=== PATIENT | female | born 1955 | race African-American/Black ===

== ENCOUNTER 2019-03-22 05:32 | Observation (INO) | payer OTHER ==
[~2019-03-22] VITALS: Ht 162.6 cm; Wt 111.2 kg
--- OUTSIDE RECORDS SUMMARY | 2019-03-22 05:34 | XMS REPORT | Summary of Care ---
Author Author Alize Montgomery M.A. Organization Unknown Address [facility] Phone Unavailable Care Team Providers Care Deli Cutter Slicer Name Role Phone LEXA Holland, RADHA Unavailable Unavailable Alize Montgomery M.A. Unavailable Unavailable MARY RYAN PA, CYNTHIA HUDSON Unavailable Unavailable Yony RYAN, Sara Unavailable Unavailable Linda RYAN, Micky Unavailable Unavailable MO RYAN, MAHNAZ Unavailable Unavailable Scarlett RYAN, Ph.D. Unavailable Unavailable MARY Holland, CYNTHIA Unavailable Unavailable LEXA RYAN, RADHA Queen Unavailable Unavailable Karolina RYAN, Ha Unavailable Unavailable Unavailable Unavailable Functional Status Name Dates Details Functional status health issues are not documented Status: Name Dates Details Cognitive status health issues are not documented Status: Problems Name Dates Details Myalgia and myositis (729.1) Status: Active Paresthesia (782.0, R20.2) Status: Active Screening for hypothyroidism (V77.0, Z13.29) Status: Active Screening for hyperlipidemia (V77.91, Z13.220) Status: Active Proteinuria (791.0, R80.9) Status: Active Screening for vaginal cancer (V76.47, Z12.72) Status: Active Hypothyroidism (244.9, E03.9) Status: Active Middle ear effusion, bilateral (381.4, H65.93) Status: Active Depression (311, F32.9) Status: Active Anxiety (300.00, F41.9) Status: Active Hyperglycemia (790.29, R73.9) Status: Active Bronchospasm (519.11, J98.01) Status: Active Allergic rhinitis due to pollen (477.0, J30.1) Status: Active Lung nodule (793.11, R91.1) Status: Active Excessive gas (787.3, R14.3) Status: Active Elevated sedimentation rate (790.1, R70.0) Status: Active Abdominal pain (789.00, R10.9) Status: Active IBS (irritable bowel syndrome) (564.1, K58.9) Status: Active Screening for diabetes mellitus (V77.1, Z13.1) Status: Active Arthralgia (719.40, M25.50) Status: Active Diverticulosis of colon (562.10, K57.30) Status: Active GERD without esophagitis (530.81, K21.9) Status: Active Achilles tendinitis of right lower extremity (726.71, M76.61) Status: Active Vaginal odor (625.8, N89.8) Status: Active Postmenopausal state (V49.81, Z78.0) Status: Active Left shoulder pain, unspecified chronicity (719.41, M25.512) Status: Active Anemia (285.9, D64.9) Status: Active History of colon polyps (V12.72, Z86.010) Status: Active Colon cancer screening (V76.51, Z12.11) Status: Active Sinus pressure (478.19, J34.89) Status: Active Viral pharyngitis (462, J02.9) Status: Active Aortic valve regurgitation, nonrheumatic (424.1, I35.1) Status: Active Palpitations (785.1, R00.2) Status: Active Lower back pain (724.2, M54.5) Status: Active Skin lesion (709.9, L98.9) Status: Active Obesity, morbid, BMI 40.0-49.9 (278.01, E66.01) Status: Active Encounter for routine gynecological examination with Papanicolaou smear of cervix (V72.31, Z01.419) Status: Active Breast cancer screening (V76.10, Z12.39) Status: Active Need for hepatitis C screening test (V73.89, Z11.59) Status: Active Lesion of nostril (478.19, J34.89) Status: Active Medications Name Dates Details Multivitamins TABS TAKE 1 TABLET DAILY. Active Fish Oil 1000 MG Oral Capsule TAKE 1 CAPSULE DAILY * Refills: 0 Active ProAir HFA 108 (90 Base) MCG/ACT Inhalation Aerosol Solution INHALE 1 TO 2 PUFFS EVERY 4 TO 6 HOURS NEEDED. * Quantity: 1 Refills: 2 RADHA LINDQUIST M.D. * Start : 10-Apr-2016 Active 8.5 GM Inhaler Papaya Oral Tablet Chewable TAKE DIRECTED. * Refills: 0 Active Allergies and Adverse Reactions Name Dates Details 12 Hour Decongestant TB12 (Allergy) Status: Active Aspirin TABS (Allergy) Status: Active Penicillins (Allergy) Status: Active Past Medical History Name Dates Details History of Achilles tendinitis of right lower extremity (726.71, M76.61) Status: Resolved History of chest pain (V13.89, Z87.898) Status: Resolved History of Diverticulosis (562.10, K57.90) Status: Resolved History of essential hypertension (V12.59, Z86.79) Status: Resolved History of Heart palpitations (785.1, R00.2) Status: Resolved History of hypothyroidism (V12.29, Z86.39) Status: Resolved Procedures Procedure Dates Details History of Tonsillectomy Completed History of Hysterectomy Completed History of Biopsy Breast Open Completed Immunization Name Dates Details Immunizations not documented Family History Name Dates Details Family history of Hypertension (V17.49) Status: Active Name Dates Details Family history of Cancer Status: Active Family history of Heart Disease (V17.49) Status: Active Name Dates Details Family history of Diabetes Mellitus (V18.0) Status: Active Social History Name Dates Details - Status: Name Dates Details Never smoker Vital Signs Date Test Result Details [id number] BP Systolic 138 mm[Hg] Status: Comments: Location: LUE; Position: Sitting BP Diastolic 81 mm[Hg] Status: Comments: Location: LUE; Position: Sitting Physical Findings 2 Status: Comments: PHQ-9 Adult Depression Screening Height 65 in Status: Weight 245.5 lb Status: Body Mass Index Calculated 40.85 kg/m2 Status: Body Surface Area Calculated 2.16 m2 Status: Temperature 97.7 f Status: Comments: Method: Temporal Heart Rate 68 /min Status: Respiration Rate 16 /min Status: Physical Findings 0 Status: Comments: Pain Scale Physical Findings 0 Status: Comments: Alcohol Screen - How many times in the past yr have you had 5 (for M) or 4 (for F) or 4 (for all > 65yrs) or more drinks in a day? Results Date Description Value Details [id number] [QH] LIPID PANEL WITH REFLEX TO DIRECT LDL CHOLESTEROL, TOTAL 172 mg/dl (Normal) Range: <200 HDL CHOLESTEROL 56 mg/dl (Normal) Range: >50 TRIGLYCERIDES 103 mg/dl (Normal) Range: <150 LDL-CHOLESTEROL 96 {MG/DL__CAL} (Normal) Comments: Reference range: <100 Desirable range <100 mg/dL for primary prevention; <70 mg/dL for patients with CHD or diabetic patients with > or=2 CHD risk factors. LDL-C is now calculated using paz Ulloa calculation, which is a validated novel method providing better accuracy than the Friedewald equation in the estimation of LDL-C. Kameron ORTIZ et al. CHETAN. 2013;310(19): 9139-5769 (http:/ /[employer]/faq/DSH314) CHOL/HDLC RATIO 3.1 {CALC} (Normal) Range: <5.0 NON HDL CHOLESTEROL 116 {MG/DL__CAL} (Normal) Range: <130 Comments: For patients with diabetes plus 1 major ASCVD risk factor, treating to a non-HDL-C goal of <100 mg/dL (LDL-C of <70 mg/dL) is considered a therapeutic option. [id number] [[facility]] CMP W/EGFR GLUCOSE 97 mg/dl (Normal) Range: 65-99 Comments: Fasting reference interval UREA NITROGEN (BUN) 13 mg/dl (Normal) Range: 7-25 CREATININE 1.03 mg/dl (Above high threshold) Range: 0.50-0.99 Comments: For patients >49 years of age, the reference limitfor Creatinine is approximately 13% higher for peopleidentified as -Citizen Of [place]. eGFR NON- 57 {ML/MIN/1.7} (Below low threshold) Range: > OR=60 eGFR 67 {ML/MIN/1.7} (Normal) Range: > OR=60 BUN/CREATININE RATIO 13 {CALC} (Normal) Range: 6-22 SODIUM 142 mmol/L (Normal) Range: 135-146 POTASSIUM 3.7 mmol/L (Normal) Range: 3.5-5.3 CHLORIDE 104 mmol/L (Normal) Range: 98-110 CARBON DIOXIDE 29 mmol/L (Normal) Range: 20-32 CALCIUM 9.4 mg/dl (Normal) Range: 8.6-10.4 PROTEIN, TOTAL 7.0 g/dl (Normal) Range: 6.1-8.1 ALBUMIN 4.1 g/dl (Normal) Range: 3.6-5.1 GLOBULIN 2.9 {G/DL__CALC} (Normal) Range: 1.9-3.7 ALBUMIN/GLOBULIN RATIO 1.4 {CALC} (Normal) Range: 1.0-2.5 BILIRUBIN, TOTAL 0.4 mg/dl (Normal) Range: 0.2-1.2 ALKALINE PHSPHATASE 60 u/l (Normal) Range: 33-130 AST 14 u/l (Normal) Range: 10-35 ALT 9 u/l (Normal) Range: 6-29 [id number] [QL] CBC (INCLUDES DIFF/PLT) WHITE BLOOD CELL COUNT 5.8 {Thousand/u} (Normal) Range: 3.8-10.8 RED BLOOD CELL COUNT 4.40 {Million/uL} (Normal) Range: 3.80-5.10 HEMAGLOBIN 11.8 g/dl (Normal) Range: 11.7-15.5 HEMATOCRIT 36.8 % (Normal) Range: 35.0-45.0 MCV 83.6 fL (Normal) Range: 80.0-100.0 MCH 26.8 pg (Below low threshold) Range: 27.0-33.0 MCHC 32.1 g/dl (Normal) Range: 32.0-36.0 RDW 13.1 % (Normal) Range: 11.0-15.0 PLATELET COUNT 236 {Thousand/u} (Normal) Range: 140-400 MPV 12.1 fL (Normal) Range: 7.5-12.5 ABSOLUTE NEUTROPHILS 3648 {cells/uL} (Normal) Range: 9462-2498 ABSOLUTE LYMPHOCYTES 1676 {cells/uL} (Normal) Range: 850-3900 ABSOLUTE MONOCYTES 412 {cells/uL} (Normal) Range: 200-950 ABSOLUTE EOSINOPHILS 52 {cells/uL} (Normal) Range: 15-500 ABSOLUTE BASOPHILS 12 {cells/uL} (Normal) Range: 0-200 NEUTROPHILS 62.9 % (Normal) LYMPHOCYTES 28.9 % (Normal) MONOCYTES 7.1 % (Normal) EOSINOPHILS 0.9 % (Normal) BASOPHILS 0.2 % (Normal) 76-[id number]:[id number] [QL] HEPATITIS C ANTIBODY HEPATITIS C ANTIBODY NON-REACTIVE (Normal) Range: NON-REACTIVE SIGNAL TO CUT-OFF 0.05 (Normal) Range: <1.00 Comments: HCV antibody was non-reactive. There is no laboratory evidence of HCV infection. In most cases, no further action is required. However,if recent HCV exposure is suspected, a test for HCV RNA(test code 77899) is suggested. For additional information please refer tohttp://education.[employer]/faq/SKN96y5(This link is being provided for informational/educational purposes only.) [id number] [QLH] TSH, 3RD GENERATION Comments: REPORT COMMENT:FASTING:YES TSH 2.52 {MIU/L} (Normal) Range: 0.40-4.50 [id number]:00 [Q] SUREPATH PAP RFX HR HPV Comments: CMP, CT(ASCP)CT screening location: [address], [place] [address] CLINICAL INFORMATION: (Normal) Comments: None given LMP: (Normal) Comments: NONE GIVEN PREV. PAP: (Normal) Comments: NONE GIVEN PREV. BX: (Normal) Comments: NONE GIVEN SOURCE: (Normal) Comments: None given STATEMENT OF ADEQUACY: (Normal) Comments: Satisfactory for evaluation.Endocervical/transformation zone component absent. INTERPRETATION/RESULT: (Normal) Comments: Negative for intraepithelial lesion or malignancy. LINUX DEVOPS ENGINEER: (Normal) Comments: CMP, CT(ASCP)CT screening location: [address], [place] [address] . Comments: EXPLANATORY NOTE: The Pap is a screening test for cervical cancer. It is not a diagnostic test and is subject to false negative and false positive results. It is most reliable when a satisfactory sample, regularly obtained, is submitted with relevant clinical findings and history, and when the Pap result is evaluated along with historic and current clinical information. NO COLLECTION DATE RECEIVED. WE HAVE USEDTHE DATE THE SPECIMEN WAS RECE[facility]ED [facility] THE COLLECTION DATE. IF THISIS INCORRECT, PLEASE CONTACT CLIENT SERVICES.PHONE NUMBER: [phone] [id number]:13 [place] Digital Mammo Screening Anjel [id number] Digital Mammo Screening Anjel [place] SEE NOTES Comments: BILATERAL DIGITAL SCREENING MAMMOGRAM WITH CAD: 03/04/2019CLINICAL: Encounter For Other Screening For Malignant Neoplasm OfBreast/Z12.39. Current study was evaluated with a Computer Aided Detection (CAD) system. COMPARISON:Comparison is made to exams dated: 02/17/2018 mammogram, 01/31/2017mammogram - [facility], 11/18/2015 mammogram, and 11/11/2014mammogram - [facility]. TECHNIQUE: Mammographic views were obtained using digital acquisition. Currentstudy was also evaluated with a Computer Aided Detection (CAD) system.FINDINGS:The tissue of both breasts is almost entirely fat. No significant masses, calcifications, or other findings are seen in eitherbreast. There has been no significant interval change.IMPRESSION: NEGATIVERECOMMENDATION:There is no mammographic evidence of malignancy. A 1 yearscreening mammogram is recommended.(03/04/2020) This exam was interpreted [id number] for Lilliana, SL 15. Professional services [facility] provided by the [facility] MontebelloDivision of Diagnostic Imaging.Ahsan Barnett M.D. cm/penrad:03/04/2019 09:19:34 K 9 Police Officer(s): RT Ba(R)(M), [facility] sent: BI-RADS 1/2 Mammogram BI-RADS: 1 Negative--Read by: Rodrigue Torres MDDictated Date/time: 03/04/19 09:19Electronically Signed by: Rodrigue Torres MD 03/04/1909:19FINAL REPORT Plan of Care Name Dates Details Planned Observations Planned Goals not documented Instructions Name Dates Details Instructions not documented Encounters Appointment; RADHA LINDQUIST M.D. Encounter Diagnosis: Problem not documented On: 25-Jun-2017 11:15 Appointment; GENEVIEVE LOUIE M.D. Encounter Diagnosis: Problem not documented On: 21-Jul-2017 10:15 Appointment; RADHA LINDQUIST M.D. Encounter Diagnosis: Problem not documented On: 26-Jan-2018 9:30 Appointment; MASSIMO CRAWFORD M.D. Encounter Diagnosis: Problem not documented On: 30-Mar-2018 13:30 Appointment; HA BLOUNT M.D. Encounter Diagnosis: Problem not documented On: 30-Mar-2018 14:45 Appointment; SARA RUSSELL M.D. Encounter Diagnosis: Problem not documented On: 13-Jul-2018 11:30 Appointment; MICKY ADAMS M.D. Encounter Diagnosis: Problem not documented On: 13-Jul-2018 12:40 Appointment; [facility], ECHO Encounter Diagnosis: Problem not documented On: 03-Aug-2018 13:00 Appointment; [facility], HOLTER Encounter Diagnosis: Problem not documented On: 03-Aug-2018 14:00 Appointment; MICKY ADAMS M.D. Encounter Diagnosis: Problem not documented On: 24-Aug-2018 10:40 Appointment; MAHNAZ HASSAN M.D. Encounter Diagnosis: Problem not documented On: 17-Sep-2018 9:30 Appointment; ARLENE MARSH M.D. Encounter Diagnosis: Problem not documented On: 18-Dec-2018 11:15 Appointment; RADHA LINDQUIST M.D. Encounter Diagnosis: Problem not documented On: 08-Feb-2019 11:00
[2019-03-22] MEDS ORDERED: SODIUM CHLORIDE 0.9% 500ML 500 ML IV STA (06:03)
[2019-03-22] MEDS ORDERED: ASPIRIN 81 MG CHEW TAB PO ONE (06:15)
--- NOTE | 2019-03-22 06:36 | Diagnostic Imaging Report ---
EXAMINATION: Head CT without contrast. HISTORY:Left facial and upper extremity tingling sensation. Next COMPARISON:None. TECHNIQUE: Multidetector axial images were obtained from the foramen magnum to the vertex without contrast. The images were reconstructed using brain and bone algorithms. Thin section brain images were reformatted into coronal and sagittal planes. Dose modulation, iterative reconstruction, and/or weight based adjustment of the mA/kV was utilized to reduce the radiation dose to as low as reasonably achievable. Intravenous contrast: None IMAGE QUALITY: Acceptable. FINDINGS: Skull/scalp: No lytic or blastic. lesions. No surgical changes. Parenchyma: Nonspecific few, scattered supratentorial white matter hypodensity are likely related to small vessel ischemic changes. Focal hypodensity in anterior limb of right internal capsule represents age indeterminate lacunar infarct. No acute hemorrhage, mass or acute major vascular territorial infarct. Arteries: No density suggestive of thrombosis. Dural sinuses: No abnormal density suggestive of thrombosis. Ventricles: No hydrocephalus or displacement. Extra-axial spaces: No abnormal density. Brain volume: Normal for age. Craniocervical junction: No mass, Chiari malformation, or basilar invagination. Sella: No mass. Paranasal/mastoid sinuses: Imaged portions unremarkable. IMPRESSION: 1. No acute intracranial abnormality, particularly no acute hemorrhage, mass or acute major vascular territorial infarct. 2. Mild supratentorial white matter microvascular ischemic changes and age indeterminate lacunar infarct in anterior limb of right internal capsule. Signed by: Dr. Franny Casas M.D. on 03/22/2019 6:33 AM
[2019-03-22 07:00] LABS: BASOPHILS % 0.3 % (0.0-1.0); EOSINOPHILS % 0.5 % (0.0-6.0); HEMATOCRIT 36.2 % (34.2-44.1); HEMOGLOBIN 11.4 g/dL (12.0-16.0); LYMPHOCYTES # (AUTO) 2.1 (1.0-3.2); LYMPHOCYTES % 27.6 % (18.0-39.1); MEAN CORPUSCULAR HEMOGLOBIN 26.9 pg (28-32); MEAN CORPUSCULAR HGB CONC 31.5 g/dL (31-35); MEAN CORPUSCULAR VOLUME 85.4 fL (81-99); MONOCYTES # (AUTO) 0.6 (0.2-0.8); MONOCYTES % 7.7 % (4.4-11.3); NEUTROPHILS # (AUTO) 4.9 (2.1-6.9); NEUTROPHILS % 63.6 % (38.7-80.0); PLATELET COUNT 210 x10e3/uL (140-360); RED BLOOD COUNT 4.24 x10e6/uL (3.6-5.1); RED CELL DISTRIBUTION WIDTH 14.2 % (11.7-14.4)
[2019-03-22 07:12] LABS: ALANINE AMINOTRANSFERASE 13 IU/L (0-55); ALBUMIN 3.6 g/dL (3.5-5.0); ALKALINE PHOSPHATASE 59 IU/L (40-150); ANION GAP 12.3 mmol/L (8-16); BLOOD UREA NITROGEN 14 mg/dL (7-26); BUN/CREATININE RATIO 14 (6-25); CALCIUM 9.6 mg/dL (8.4-10.2); CARBON DIOXIDE 29 mmol/L (22-29); CHLORIDE 104 mmol/L (98-107); CREATINE KINASE 130 IU/L (29-168); CREATININE, SERUM 0.99 mg/dL (0.57-1.11); EST GLOMERULAR FILTRATION RATE > 60 ML/MIN (60-); GLUCOSE 111 mg/dL (74-118); POTASSIUM 3.3 mmol/L (3.5-5.1); SODIUM 142 mmol/L (136-145)
--- OUTSIDE RECORDS SUMMARY | 2019-03-22 07:17 | XMS REPORT ---
[facility] Address Unknown Phone Unavailable Care Team Providers Care Riveter Hand Name Role Phone MOHAMUD ACOSTA Unavailable Unavailable Problems This patient has no known problems. Allergies, Adverse Reactions, Alerts This patient has no known allergies or adverse reactions. Medications This patient has no known medications. Results Test Description Test Time Test Comments Text Results Atomic Results Result Comments CT BRAIN WO 2019-03-22 06:29:00 [facility] [address] [place] [address] Patient Name: KELLEN HERNANDEZ MR #: [id number] : 1955 Age/Sex: 63/F Req #: [id number] Adm Physician: Ordered by: ACOSTA MALLORY DO Report #: [id number] Location: ER Room/Bed: Procedure: [id number] CT/CT BRAIN WO Exam Date: Exam Time: REPORT STATUS: Signed EXAMINATION: Head CT without contrast. HISTORY:Left facial and upper extremity tingling sensation. Next COMPARISON:None. TECHNIQUE: Multidetector axial images were obtained from the foramen magnum to the vertex without contrast. The images were reconstructed using brain and bone algorithms. Thin section brain images were reformatted into coronal and sagittal planes. Dose modulation, iterative reconstruction, and/or weight based adjustment of the mA/kV was utilized to reduce the radiation dose to as low as reasonably achievable. Intravenous contrast: None IMAGE QUALITY: Acceptable. FINDINGS: Skull/scalp: No lytic or blastic. lesions. No surgical changes. Parenchyma: Nonspecific few, scattered supratentorial white matter hypodensity are likely related to small vessel ischemic changes. Focal hypodensity in anterior limb of right internal capsule represents age indeterminate lacunar infarct. No acute hemorrhage, mass or acute major vascular territorial infarct. Arteries: No density suggestive of thrombosi s. Dural sinuses: No abnormal density suggestive of thrombosis. Ventricles: No hydrocephalus or displacement. Extra-axial spaces: No abnormal density. Brain volume: Normal for age. Craniocervical junction: No mass, Chiari malformation, or basilar invagination. Sella: No mass. Paranasal/mastoid sinuses: Imaged portions unremarkable. IMPRESSION: 1. No acute intracranial abnormality, particularly no acute hemorrhage, mass or acute major vascular territorial infarct. 2. Mild supratentorial white matter microvascular ischemic changes and age indeterminate lacunar infarct in anterior limb of right internal capsule. Signed by: Dr. Franny Bar M.D. on 03/22/2019 6:33 AM Dictated By: FRANNY BAR MD 2 Transcribed By: DARIN on 03/22/19632 COPY TO: ACOSTA MALLORY DO
--- NOTE | 2019-03-22 07:24 | Diagnostic Imaging Report ---
EXAMINATION: CHEST 2 VIEWS INDICATION: Left upper extremity tingling COMPARISON: None FINDINGS: PA and lateral views TUBES and LINES: None. LUNGS: Lungs are well inflated. Lungs are clear. There is no evidence of pneumonia or pulmonary edema. PLEURA: No pleural effusion or pneumothorax. HEART AND MEDIASTINUM: The cardiomediastinal silhouette is unremarkable. BONES AND SOFT TISSUES: No acute osseous lesion. Soft tissues are unremarkable. Degenerative changes in the spine. UPPER ABDOMEN: No free air under the diaphragm. IMPRESSION: No acute thoracic radiographic abnormality. Signed by: Jamal Cid DO on 03/22/2019 7:20 AM
--- NOTE | 2019-03-22 08:46 | NUR ---
Dr. Cabral at bedside in ER bed 2 to evaluate patient.
[2019-03-22] MEDS ORDERED: POTASSIUM CHLORIDE 10MEQ/100ML 200 ML IV ONE (09:00)
--- NOTE | 2019-03-22 12:18 | Consultation ---
DATE OF CONSULTATION: Cardiology Consultation Note CLINICAL HISTORY: This is a 63-year-old black woman, known to our service from previous evaluation, seen in the Emergency Room [facility] because of left arm weakness and left arm tingling as well as tingling in the left side of the tongue and the teeth. This patient was hospitalized at [facility] in September of 2006. At that time, she had hypertension and palpitations. Her evaluation apparently was benign. Since that time, she has had further complaints of palpitations and had a Holter study done last year on outpatient basis and was said to be negative. Additionally, she had a carotid Doppler scan and that was negative. For the past 2 days, she has been complaining of left tongue as well as teeth tingling, followed by today with left arm tingling. She became scared and came to the emergency room. Cardiology consultation requested. PAST MEDICAL HISTORY: Remarkable for hypertension, not requiring any medication at this time. There is history of palpitations as mentioned above and hiatal hernia as well as obesity. PAST SURGICAL HISTORY: Included right lumpectomy that was benign and partial hysterectomy. 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 Denies smoking or drinking. FAMILY HISTORY: Father had myocardial infarction in his 50s. Mother from sepsis. Brother and sisters are healthy. REVIEW OF SYSTEMS: Noncontributory. PHYSICAL EXAMINATION: GENERAL: She is obese, alert, and coherent. VITAL SIGNS: Stable. CARDIAC: Jugular veins were nondistended. S1 and S2 were regular. There are no appreciable murmurs. LUNGS: Clear. ABDOMEN: Soft. Bowel sounds are present. EXTREMITIES: Show no cyanosis, clubbing, or edema. LABORATORY STUDY: Hemoglobin 11.4. Potassium 3.3. IMPRESSION: 1. Left arm tingling as well as tingling involving the left tongue and teeth. Consider brainstem cerebrovascular accident or cervical radiculopathy. 2. Rule out cardiac arrhythmia with history of palpitations, but negative Holter studies. 3. Rule out carotid artery disease. 4. History of hypertension, not requiring medication. 5. History of hiatal hernia. 6. Obesity. 7. Family history of coronary artery disease. 8. No evidence of exertional chest pains with the patient claiming to walk 2 miles and do 30 minutes of treadmill without chest pains. Brain K MD RICKEY Gleason/DIOMEDES /[id number] cc: Louis Cabral MD
--- NOTE | 2019-03-22 12:30 | NUR ---
Received report from RUBEN Arenas in the ER. Patient is coming to room 214.
[2019-03-22 13:45] VITALS: BP 195/93
[2019-03-22] MEDS ORDERED: CLONIDINE HCL 0.1 MG TAB PO STA (14:39)
--- NOTE | 2019-03-22 14:40 | NUR ---
Notified Dr. Gleason of BP 187/93. New orders received
--- NOTE | 2019-03-22 15:03 | Diagnostic Imaging Report ---
MRI BRAIN WO HISTORY: Left-sided tingling, high blood pressure COMPARISON: None. TECHNIQUE: Sagittal T2, axial T2, axial T1, axial T2/FLAIR, axial gradient echo (or susceptibility weighted), coronal T2/FLAIR, and axial diffusion weighted MR images of the brain were obtained without contrast. DISCUSSION: Scalp/bone marrow: Unremarkable. Brain sulci: Appropriate for patient's age. Ventricles: Normal in size and configuration. No hydrocephalus. Extra-axial spaces: No masses or fluid collections. Parenchyma: Increased T2/FLAIR hyperintensity in the bilateral caudate heads, striatocapsular regions, and anterior putamina is not associated with diffusion restriction. Scattered T2/FLAIR hyperintense foci throughout the supratentorial white matter and pablo are likely chronic microvascular ischemic changes. Otherwise, no mass, hemorrhage, or acute vascular insults. Vessels: Normal flow voids in major arteries and veins. Sellar/Suprasellar region: No abnormalities. Craniocervical junction: No abnormalities. Incidental findings: None. IMPRESSION: 1. Increased T2/FLAIR hyperintensity in the bilateral striatocapsular regions (edema?) could be due to posterior reversible encephalopathy syndrome (central variant) or other toxic/metabolic insult in the appropriate clinical setting. No associated diffusion restriction to suggest acute ischemia. 2. Otherwise, no acute intracranial abnormalities. 3. Mild supratentorial/pontine chronic microvascular ischemic change. Signed by: Dr. Eliecer Shields M.D. on 03/22/2019 2:59 PM
[2019-03-22 16:25] VITALS: BP 187/93
--- NOTE | 2019-03-22 16:53 | NUR ---
Blood pressure recheck 130/78
[2019-03-22 17:12] VITALS: BP 187/93
[2019-03-22 20:00] VITALS: BP 175/107
[2019-03-22] MEDS: CLONIDINE HCL 0.1 MG TAB PO SCH (20:52)
[2019-03-22 21:00] VITALS: BP 175/107
[2019-03-22] MEDS: FAMOTIDINE 20 MG TAB PO SCH (21:01)
[2019-03-22] MEDS: ENOXAPARIN SOD INJ 40 MG/0.4 ML SYR SC SCH (21:01)
[2019-03-22] MEDS: ASPIRIN 81 MG ENTERIC COATED PO SCH (21:01)
[2019-03-22] MEDS: ATORVASTATIN 20 MG TAB PO SCH (22:15)
[2019-03-23] VITALS (9 sets, daily range): BP systolic 129–172; BP diastolic 75–104
--- NOTE | 2019-03-23 04:25 | Consultation ---
DATE OF CONSULTATION: 03/22/2019 Neurology Consult Note HISTORY OF PRESENT ILLNESS: Ms. Alcantara is a 63-year-old right-hand dominant woman with past medical history significant for hypertension, not currently on medication, and morbid obesity, admitted to [facility] on March 22, 2019, with numbness and tingling over the left side of face and arm. Approximately 1 week prior to admission, the patient noted numbness and tingling along the gums and tongue on the left side. Upon awakening at 0445 on the day of admission, Ms. Alcantara noted numbness and tingling along the left side of the face and left arm as well. The patient does not report dysarthria, aphasia, facial droop, hemiparesis, hemihypesthesia, poor balance, impairment of gait, or confusion associated with the above symptoms. Ms. Alcantara does report a brief period of dizziness, which is further described as lightheadedness upon standing from her bed on the morning of admission. Uncertain as to what may be the cause of her symptoms, Ms. Alcantara presented to the emergency center at [facility] for further evaluation. Upon arrival in the emergency center, the patient was afebrile with a blood pressure of 164/74 mmHg and a pulse of 67 beats per minute. Documentation of the patient's neurological examination is not available for review at present. While in the emergency center, the patient underwent a CT of the brain without contrast, which revealed a remote lacunar infarct in the anterior limb of the right internal capsule. While in the emergency center, the patient was noted to be markedly hypertensive with a blood pressure as high as 195/93 mmHg. Due to her high blood pressures as well as her neurological symptoms, Ms. Alcantara was admitted to [facility] under observation status for further evaluation and treatment of her symptoms. While in the hospital, Ms. Alcantara reports the numbness and tingling over the left side of her face and left arm have waxed and waned. The patient reports the symptoms seem to improve as her blood pressure improves. For instance, after receiving a dose of clonidine, the patient's systolic blood pressure decreased to the 130s mmHg. At that time, Ms. Alcantara reports her symptoms more or less resolved. However, as her blood pressure has subsequently increased throughout the day, the symptoms have returned. To her knowledge, Ms. Alcantara has not experienced a prior stroke. She does not take an antiplatelet or anticoagulant medication on a routine basis. The patient reports monitoring her blood pressure 1 to 2 times per week. Ms. Alcantara reports her blood pressures are always "good." REVIEW OF SYSTEMS: Left facial numbness, numbness of the left arm, brief episodic dizziness, which is further described as lightheadedness. PAST MEDICAL HISTORY: Hypertension (not on medications), hiatal hernia, morbid obesity. PAST SURGICAL HISTORY: Right breast lumpectomy (benign), partial hysterectomy, and tonsillectomy. PAST HOSPITALIZATIONS: Surgeries/procedures as listed, childbirth. FAMILY MEDICAL HISTORY: The patient's father is from coronary artery disease with a myocardial infarction in his 50s. The patient's mother is from sepsis. Ms. Alcantara has a half brother, who has diabetes mellitus. SOCIAL HISTORY: Ms. Alcantara is . 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 The patient does not report current or prior tobacco or recreational drug use. She does report drinking an occasional glass of wine. HOME MEDICATIONS: None. HOSPITAL MEDICATIONS: Clonidine. ALLERGIES: PENICILLIN, ASPIRIN CAUSES AN UPSET STOMACH, DECONGESTANTS CAUSE IRRITABILITY AND HYPERACTIVITY. NO KNOWN FOOD ALLERGIES. NO KNOWN ALLERGIES TO LATEX. NO KNOWN ALLERGIES TO IODINE OR OTHER CONTRAST MATERIALS. PHYSICAL EXAMINATION: VITAL SIGNS: Height 64 inches, weight 230 pounds, BMI 39.5 kg/m2. Blood pressure 187/93 mmHg, pulse 60 beats per minute, respiratory rate 17 breaths per minute, and oxygen saturation 99% on room air. GENERAL: The patient is awake and alert, does not appear distressed. Morbidly obese. HEENT: Normocephalic, atraumatic. Pupils are equal, round, and reactive to light. Moist mucous membranes. NECK: Supple. No appreciable thyromegaly. No appreciable carotid bruits. CARDIOVASCULAR: S1 and S2, regular rate and rhythm. No murmurs, rubs, or gallops. RESPIRATORY: Clear to auscultation bilaterally. No wheezes, rhonchi, or rales. EXTREMITIES: The skin is warm and dry. No clubbing, cyanosis, or edema. The posterior tibial and dorsalis pedis pulses are 2+ and symmetric. SKIN: No rashes or lesions. NEUROLOGIC: Memory/Attention: The patient is awake and alert, oriented to person, place, time, and situation. Cranial Nerves: Cranial nerve I-not tested. Cranial nerve II, III, IV, and - pupils are equal and round, react briskly to light (from 4 mm to 2 mm). Extraocular movements intact. No nystagmus. Cranial nerve V-sensation to light touch and pinprick is intact in the bilateral V1 through V3 distributions. Strength in the temporalis and masseter muscles is within normal limits. Cranial nerve VII-the face is symmetric as are all facial movements. Strength is within normal limits. Cranial nerve VIII-hearing is intact to finger rub bilaterally. Cranial nerve IX, X-the soft palate elevates equally and symmetrically. Cranial nerve XI-normal strength of the bilateral sternocleidomastoid and trapezius muscles. Cranial nerve XII-the tongue protrudes midline and moves symmetrically from [id number]. Strength: Bulk is normal. Strength is 5/5 in the bilateral deltoids, biceps, triceps, wrist flexors and extensors, finger flexors and extensors, intrinsic hand muscles, hip flexors, knee flexors and extensors, ankle dorsiflexion and plantar flexion, and intrinsic foot muscles. Tone is normal. DTRs: Deep tendon reflexes are 2+ and symmetric at the triceps, biceps, brachioradialis, patellas, and Achilles. Plantar responses are flexor bilaterally. Sensation: Sensation is intact to light touch and pinprick in both arms and both legs. Cerebellar: [id number] and heel-david movements are intact without dysmetria or other impairment. Gait: Deferred. Speech: Spontaneous speech is normal without appreciable dysarthria or aphasia. Repetition is intact. Involuntary Movements: None. Pronator Drift: None. LABORATORY DATA: A comprehensive metabolic panel is significant for a potassium of 3.3 and globulin of 3.7. Cardiac enzymes are negative x1. Total cholesterol 170, triglycerides 84, LDL cholesterol 96, HDL cholesterol 57. Hemoglobin A1c is 5.9. The CBC with differential and platelets reveals a white blood cell count of 7.71 with a normal differential. The hemoglobin and hematocrit are 11.4 and 36.2, respectively. The platelet count is 210. DIAGNOSTIC STUDIES: Electrocardiogram on 03/22/2019: Normal sinus rhythm at 63 beats per minute. Chest x-ray on 03/22/2019: No acute thoracic radiographic abnormality. CT of the brain without contrast on 03/22/2019: There is no evidence of recent large territorial ischemia, hemorrhage, mass, or mass effect. A remote lacunar infarct is seen in the anterior limb of the right internal capsule. Cerebral volumes are appropriate for age. Their findings compatible with [id number] chronic small-vessel ischemic disease. Echocardiogram on 03/22/2019: Ejection fraction 60% to 65%. Left ventricular hypertrophy. Right ventricular enlargement. Mild aortic insufficiency, mitral regurgitation, tricuspid regurgitation, and pulmonic insufficiency. Bilateral carotid artery ultrasound with Doppler on 03/22/2019: There is no significant atherosclerosis in the right carotid artery system. There is atherosclerosis without hemodynamically significant stenosis at the left carotid bulb. Flow is antegrade in the bilateral vertebral arteries. MRI of the brain without contrast on 03/22/2019: There is no evidence of recent large territorial ischemia, hemorrhage, mass, or mass effect. Once again, a remote lacunar infarct is seen in the anterior limb of the right internal capsule. Cerebral volumes are appropriate for age. There is increased T2/FLAIR hyperintensity in the bilateral striatocapsular regions, probably secondary to hypertension. There are scattered T2/FLAIR hyperintense foci throughout the supratentorial and infratentorial white matter compatible with [id number] chronic small-vessel ischemic disease. ASSESSMENT AND PLAN: Ms. Alcantara is a 63-year-old right-hand dominant woman with past medical history significant for hypertension, not on medications, and morbid obesity, admitted to [facility] under observation status on March 22, 2019, with left face (including gums and teeth), and left arm numbness and tingling of approximately 1 week duration and hypertension. Ms. Alcantara's neurological examination is nonfocal. Her laboratory data and other diagnostic studies have been reviewed and are documented above. Based on the findings of the CT of the brain without contrast and MRI of the brain without contrast, Ms. Alcantara's symptoms are not due to an acute ischemic stroke. However, the patient has had a lacunar stroke in the anterior limb of the right internal capsule at some point in the past. This stroke was not diagnosed, evaluated, or treated. The patient's present neurological symptoms probably represent recrudescence of prior deficits secondary to hypertension. RECOMMENDATIONS: Are as follows: 1. Aspirin 81 mg by mouth daily will be prescribed for stroke prophylaxis. 2. The patient's blood pressures may be normalized with a goal of less than 140/90 mmHg prior to [address] Gleason (Cardiology) has prescribed clonidine 0.1 mg by mouth twice daily. Monitor vital signs per unit protocol and add/adjust medications as appropriate. 3. The patient's goal total cholesterol is less than 200 with an LDL of less than 70. Ms. Fangs total cholesterol is 170 with an LDL cholesterol of 96. Atorvastatin 20 mg by mouth at bedtime daily will be prescribed. A repeat lipid panel should be ordered in approximately 8 weeks. 4. The patient's goal hemoglobin A1c is less than 7.0. Ms. Fangs hemoglobin A1c is 5.9, indicating the patient is prediabetic. Tight glycemic control is recommended while the patient is hospitalized. Defer further treatment to the primary service. 5. Speech and Physical Therapy consultations will be deferred as the patient has no neurological deficits. 6. GI prophylaxis with Pepcid 20 mg by mouth twice daily with meals. DVT prophylaxis with Lovenox 40 mg subcutaneously daily. 7. Defer treatment of the remaining medical comorbidities to the primary and other services following the patient. 8. Anticipated discharge: Home with no needs within 2 to 3 days. Thank you for this consultation. I will continue to follow the patient while she remains in the hospital. TIME SPENT: 70 minutes. Aury Palacio MD CP/DIOMEDES /[id number] MTDD
[2019-03-23 05:54] LABS: ALANINE AMINOTRANSFERASE 11 IU/L (0-55); ALBUMIN 3.1 g/dL (3.5-5.0); ALBUMIN/GLOBULIN RATIO 0.9 (0.8-2.0); ALKALINE PHOSPHATASE 50 IU/L (40-150); ANION GAP 9.2 mmol/L (8-16); BLOOD UREA NITROGEN 13 mg/dL (7-26); BUN/CREATININE RATIO 14 (6-25); CARBON DIOXIDE 30 mmol/L (22-29); CHLORIDE 104 mmol/L (98-107); CREATININE, SERUM 0.92 mg/dL (0.57-1.11); EST GLOMERULAR FILTRATION RATE > 60 ML/MIN (60-); GLUCOSE 101 mg/dL (74-118); POTASSIUM 3.2 mmol/L (3.5-5.1); SODIUM 140 mmol/L (136-145)
[2019-03-23] MEDS: CLONIDINE HCL 0.1 MG TAB PO SCH ×2 (09:00→17:17)
[2019-03-23] MEDS: ASPIRIN 81 MG ENTERIC COATED PO SCH (09:00)
[2019-03-23] MEDS: FAMOTIDINE 20 MG TAB PO SCH ×2 (09:00→17:13)
[2019-03-23] MEDS ORDERED: ACETAMINOPHEN 325 MG TAB PO PRN (09:15)
[2019-03-23] MEDS ORDERED: POTASSIUM CHLORIDE 20 MEQ TAB CR PO ONE (11:45)
[2019-03-23 12:01] LABS: CREATINE KINASE 75 IU/L (29-168)
--- NOTE | 2019-03-23 14:46 | Diagnostic Imaging Report ---
EXAMINATION: MRI of the cervical spine without contrast HISTORY: Left upper extremity numbness COMPARISON: None available TECHNIQUE: Sagittal T1, T2, STIR; axial T2, gradient echo. FINDINGS: Curvature: Straightening of the cervical lordosis which may be related to muscle spasm or positional. Vertebrae: No evidence of neoplasm, infection, or fracture. Foramen magnum: No mass, Chiari malformation, or basilar invagination. Spinal Cord: Normal size and signal intensity. Soft Tissues: Unremarkable. Degenerative changes: C1-C2: Unremarkable. C2-C3: Minimal symmetric disc bulge and facet arthrosis without significant canal or foraminal stenosis. C3-C4: Minimal symmetric disc bulge, uncovertebral and facet arthrosis. No significant canal or foraminal stenoses. C4-C5: Within normal limits C5-C6: Within normal limits C6-C7: Minimal disc bulge without stenoses C7-T1: Minimal disc bulge and facet arthrosis. Mild left foraminal stenoses. IMPRESSION: 1. Mild degenerative foraminal stenosis on the left at C7-T1. 2. Otherwise no significant degenerative changes, spinal canal or foraminal stenosis. Signed by: Dr. Michelle Lua M.D. on 03/23/2019 2:43 PM
--- NOTE | 2019-03-23 15:50 | NUR ---
Visit made by the Spiritual Care Department Pastoral Visitor, Guadalupe Vernon. PV provided pastoral presence, prayer, hospitality, and supportive listening. Pastoral Visitor informed pt/family of the scope of [facility] and availability. RACHEL RHODES Powder Operator Spiritual Care Department O: [phone] Pager: [phone] ([phone] calling from)
[2019-03-23] MEDS: ENOXAPARIN SOD INJ 40 MG/0.4 ML SYR SC SCH (17:17)
[2019-03-23 19:05] LABS: CREATINE KINASE 75 IU/L (29-168)
--- NOTE | 2019-03-23 19:26 | NUR ---
Patient received sitting up in bed. AAO x 3. Family at bedside. Patient had no complaints of pain. Respirations even and non-labored. Telemetry records patient's rhythm as SR with a heart rate of 60. Fall precautions implemented. Patient instructed to call for assistance when needed. Call light within reach.
[2019-03-23] MEDS: ATORVASTATIN 20 MG TAB PO SCH (21:48)
[2019-03-24 00:23] VITALS: BP 142/82
[2019-03-24 05:54] VITALS: BP 134/80
[2019-03-24 06:18] LABS: ANION GAP 11.6 mmol/L (8-16); BLOOD UREA NITROGEN 18 mg/dL (7-26); BUN/CREATININE RATIO 19 (6-25); CALCIUM 9.8 mg/dL (8.4-10.2); CARBON DIOXIDE 28 mmol/L (22-29); CHLORIDE 102 mmol/L (98-107); CREATININE, SERUM 0.96 mg/dL (0.57-1.11); EST GLOMERULAR FILTRATION RATE > 60 ML/MIN (60-); GLUCOSE 98 mg/dL (74-118); POTASSIUM 3.6 mmol/L (3.5-5.1); SODIUM 138 mmol/L (136-145)
--- NOTE | 2019-03-24 07:00 | NUR ---
Shift report given to oncoming nurse.
--- NOTE | 2019-03-24 07:00 | NUR ---
BEDSIDE SHIFT REPORT RECEIVED FROM THE STAFFING ADMINISTRATOR RN. EDUCATED PT ABOUT FALL PRECAUTIONS. BED IS LOW AND LOCKED. CALL LIGHT WITH IN EASY REACH. INFORMED PT TO CALL FOR ANY NEEDS. PT VERBALIZED UNDERSTANDING. PT DENIES NEEDS AT THIS TIME.
[2019-03-24 08:00] VITALS: BP 144/75
[2019-03-24] MEDS: FAMOTIDINE 20 MG TAB PO SCH (08:15)
[2019-03-24 08:21] VITALS: BP 144/75
[2019-03-24] MEDS: ASPIRIN 81 MG ENTERIC COATED PO SCH (08:46)
[2019-03-24] MEDS ORDERED: FAMOTIDINE20 MG PO (09:06)
[2019-03-24] MEDS ORDERED: LIPITOR20 MG PO (09:06)
[2019-03-24] MEDS ORDERED: ASPIRIN EC81 MG PO (09:06)
[2019-03-24] MEDS ORDERED: CATAPRES0.1 MG PO (09:06)
[2019-03-24] MEDS: CLONIDINE HCL 0.1 MG TAB PO SCH (10:00)
--- NOTE | 2019-03-24 11:00 | NUR ---
PT DISCHARGED HOME SAFELY WITH FAMILY. PT ESCORTED VIA WHEEL CHAIR TO THE FRONT ENTRANCE. TELE AND IV REMOVED. TIP INTACT. DRESSING APPLIED. PT DENIED FURTHER NEEDS.
== END 2019-03-24 11:09 | disposition home or self-care (01) ==
LOC: ER 05:32 → ERHOLD 07:08 → MED/SURG2 13:38
PROVIDERS: ADMIT Internal Medicine; ATTEND Internal Medicine
DX: I63.9 Cerebral infarction, unspecified (principal); I10 Essential (primary) hypertension; E66.01 Morbid (severe) obesity due to excess calories; Z68.41 Body mass index [BMI] 40.0-44.9, adult; Z86.73 Personal history of transient ischemic attack (TIA), and cerebral infarction without residual deficits; R73.03 Prediabetes; E78.00 Pure hypercholesterolemia, unspecified; R29.810 Facial weakness; G81.94 Hemiplegia, unspecified affecting left nondominant side
CPT/HCPCS: 36415 ×3; 70450; 70551; 71046; 72141; 80048; 80053 ×2; 80061; 82550 ×2; 82553 ×2; 83036; 84484 ×2; 85025; 93005; 93306; 93880; 97139; 99285; G0378 ×3; J1650 ×2; J3480; J7040